=== PATIENT | male | born 1950 | race American Indian/Alaskan Native ===

== ENCOUNTER 2016-11-18 20:58 | Inpatient (IN) | payer MEDICARE ==
[2016-11-18] MEDS ORDERED: TYLENOL ONE (22:27)
[2016-11-18] MEDS ORDERED: TYLENOL PO ONE (22:28)
[2016-11-19] MEDS ORDERED: NACL 0.9% 1000 ML 1,000 ML ONE (00:46)
[2016-11-19] MEDS ORDERED: XOPENEX IH ONE (00:50)
[2016-11-19] MEDS ORDERED: ATROVENT IH ONE (00:50)
[2016-11-19] MEDS ORDERED: MAGNESIUM SULFATE 2GM/50ML 50 ML IV ONE (00:51)
--- NOTE | 2016-11-19 00:57 | Emergency Department Report ---
HPI - General Chief Complaint: Dyspnea/Respdistress Time Seen by Provider: 11/19/16 00:43 - HPI HPI: Room 24 The patient is a 66-year-old male presenting with a chief complaint of shortness of breath. 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 The patient does admit to alcohol but acknowledges it has been nonproductive. Patient denies chest pain. Patient denies any other symptoms outside of shortness of breath Location: Lungs Duration: 4 days Quality: Shortness of breath Severity: Moderate Modifying factors: Unknown Context: [see above] Mode of transportation: [not driving] ED Past Medical Hx - Past Medical History Previous Medical History?: Yes Hx Hypertension: Yes Hx CVA: Yes Hx Diabetes: Yes Hx Asthma: Yes Hx COPD: Yes - Surgical History Past Surgical History?: Yes Additional Surgical History: Gtube - Family History Family history: no significant - Social History Smoking Status: Unknown if ever smoked Substance Use Type: Non Opiate Pain, Prescribed - Medications Home Medications: Home Medications Medication Instructions Recorded Confirmed Last Taken Type Aspirin [Aspirin BABY CHEW TAB] 81 mg PO QDAY 02/05/15 11/18/16 11/18/16 History Clonidine HCl [Catapres] 0.3 mg PO Q8H 02/05/15 11/18/16 11/18/16 History Clopidogrel Bisulfate [Plavix] 75 mg PO DAILY 02/05/15 11/18/16 11/18/16 History Diltiazem [Cardizem] 60 mg PO DAILY 02/05/15 11/18/16 11/18/16 History Famotidine [Pepcid] 20 mg PO QHS 02/05/15 11/18/16 11/18/16 History Insulin Glargine [Lantus VIAL] 25 unit SUB-Q QHS 02/05/15 11/18/16 11/18/16 History LORazepam [Ativan] 2 mg PO Q6H PRN 02/05/15 11/18/16 11/18/16 History Metoprolol [Lopressor TAB] 50 mg PO BID 02/05/15 11/18/16 11/18/16 History Simvastatin [Zocor TAB] 20 mg PO QHS 02/05/15 11/18/16 11/18/16 History metFORMIN [Glucophage] 500 mg PO BID 02/05/15 11/18/16 11/18/16 History Levofloxacin [Levaquin] 500 mg PO QDAY #7 tablet 02/13/15 11/18/16 11/18/16 Rx ED Review of Systems ROS: Stated complaint: DIFFICULTY IN BREATHING Other details as noted in HPI Comment: All other systems reviewed and negative Constitutional: fever Eyes: denies: eye pain, eye discharge, vision change ENT: denies: ear pain, throat pain Respiratory: cough, shortness of breath Cardiovascular: denies: chest pain Endocrine: no symptoms reported Gastrointestinal: denies: abdominal pain, nausea, diarrhea Genitourinary: denies: urgency, dysuria Musculoskeletal: denies: back pain, joint swelling, arthralgia Skin: denies: rash, lesions Neurological: denies: headache, weakness, paresthesias Psychiatric: denies: anxiety, depression Hematological/Lymphatic: denies: easy bleeding, easy bruising Physical Exam - Physical Exam Vital Signs: Vital Signs 11/18/16 11/18/16 11/18/16 21:09 21:16 21:24 Temperature 100.1 F H Pulse Rate 144 H 144 H 144 H Respiratory 31 H 24 24 Rate Blood Pressure 136/73 Blood Pressure 136/73 [Left] O2 Sat by Pulse 99 99 99 Oximetry 11/18/16 11/18/16 11/18/16 22:00 22:26 23:00 Temperature 102.9 F H Pulse Rate 143 H 143 H 130 H Respiratory 28 H 22 29 H Rate Blood Pressure 134/40 137/67 Blood Pressure 127/77 [Left] O2 Sat by Pulse 98 99 99 Oximetry Physical Exam: GENERAL: The patient is well-developed well-nourished male lying on stretcher appearing diaphoretic. [] HEENT: Normocephalic. Atraumatic. Extraocular motions are intact. Patient has moist mucous membranes. NECK: Supple. Midline CHEST/LUNGS: Faint wheezing. Slightly increased work of breathing HEART/CARDIOVASCULAR: Regular. There is tachycardia. There is no gallop rub or murmur. ABDOMEN: Abdomen is soft, nontender. Patient has normal bowel sounds. There is no abdominal distention. SKIN: There is no rash. There is no edema. There is diaphoresis. NEURO: The patient is awake and alert. The patient is cooperative. Right hemiparesis from previous CVA. MUSCULOSKELETAL: There is no evidence of acute injury. ED Course Vital Signs 11/18/16 11/18/16 11/18/16 21:09 21:16 21:24 Temperature 100.1 F H Pulse Rate 144 H 144 H 144 H Respiratory 31 H 24 24 Rate Blood Pressure 136/73 Blood Pressure 136/73 [Left] O2 Sat by Pulse 99 99 99 Oximetry 11/18/16 11/18/16 11/18/16 22:00 22:26 23:00 Temperature 102.9 F H Pulse Rate 143 H 143 H 130 H Respiratory 28 H 22 29 H Rate Blood Pressure 134/40 137/67 Blood Pressure 127/77 [Left] O2 Sat by Pulse 98 99 99 Oximetry ED Medical Decision Making - Lab Data Result diagrams: 11/19/16 01:42 11/19/16 01:42 Laboratory Tests 11/19/16 11/19/16 11/19/16 01:42 01:42 01:42 WBC 15.4 H RBC 5.56 H Hgb 7.1 L Hct 26.0 L MCV 50 L MCH 13 L MCHC 26 L RDW 23.0 H Plt Count 374 Lymph % (Auto) Mixing Operator [place] % (Auto) Mixing Operator Eos % (Auto) Mixing Operator Baso % (Auto) Mixing Operator Lymph # Mixing Operator [place] # Mixing Operator Eos # Mixing Operator Baso # Mixing Operator Seg Neutrophils % Mixing Operator Seg Neutrophils # Mixing Operator PT 14.7 INR 1.16 H APTT 31.5 Sodium 142 Potassium 4.2 Chloride 102.6 Carbon Dioxide 20 L Anion Gap 24 BUN 11 Creatinine 0.5 L Estimated GFR > 60 BUN/Creatinine Ratio 22.00 Glucose 174 H Calcium 8.7 Total Creatine Kinase 286 H CK-MB (CK-2) 3.0 CK-MB (CK-2) Rel Index 1.0 Troponin T 0.041 H NT-Pro-B Natriuret Pep 3981 H - EKG Data -: EKG Interpreted by Me EKG shows normal: sinus rhythm Rate: tachycardia (129 bpm) - EKG Data When compared to previous EKG there are: changes noted Interpretation: nonspecific ST-T wave christ (diffuse ST depression) - Radiology Data Radiology results: image reviewed (chest x-ray) interpreted by me: Chest [id number] right lower lobe atelectasis. No definite focal infiltrates seen. No pneumothorax - Differential Diagnosis pneumonia, COPD exacerbation Critical care attestation.: If time is entered above; I have spent that time in minutes in the direct care of this critically ill patient, excluding procedure time. ED Disposition Clinical Impression: Shortness of breath, COPD exacerbation, Pulmonary infection Disposition: OP ADMITTED IP TO THIS HOSP Is pt being admited?: Yes Does the pt Need Aspirin: Yes Condition: Serious Instructions: Chronic Obstructive Pulmonary Disease (ED) Time of Disposition: 02:52 (hospitalist paged)
[2016-11-19] MEDS ORDERED: NACL 0.9% 1000 ML 1,000 ML IV ONE (01:04)
[2016-11-19 02:14] LABS: INR 1.16 (0.87-1.13)
[2016-11-19 02:15] LABS: Partial Thromboplastin Time 31.5 Sec. (24.2-36.6)
[2016-11-19 02:17] LABS: Blood Urea Nitrogen 11 mg/dL (9-20); Calcium 8.7 mg/dL (8.4-10.2); Carbon Dioxide 20 mmol/L (22-30); Chloride 102.6 mmol/L (98-107); Creatine Kinase 286 units/L (55-170); Glucose 174 mg/dL (75-100); Potassium 4.2 mmol/L (3.6-5.0); Sodium 142 mmol/L (137-145)
[2016-11-19 02:21] LABS: Anion Gap 24 mmol/L
[2016-11-19] MEDS ORDERED: ASPIRIN PO ONE (02:31)
[2016-11-19 02:38] LABS: Platelet Count 374 K/mm3 (140-440); Red Blood Count 5.56 M/mm3 (3.65-5.03); White Blood Count 15.4 K/mm3 (4.5-11.0)
[2016-11-19 02:40] LABS: Hemoglobin 7.1 gm/dl (11.8-15.2)
[2016-11-19 02:42] LABS: Mean Corpuscular HGB Conc 26 % (32-34); Mean Corpuscular Hemoglobin 13 pg (28-32); Mean Corpuscular Volume 50 fl (84-94)
[2016-11-19] MEDS ORDERED: ZOSYN/NS 4.5GM/100ML 100 ML IV ONE (02:48)
[2016-11-19 03:00] LABS: Cholesterol 136 mg/dL (50-199); HDL Cholesterol 44 mg/dL (40-59); LDL Cholesterol,Direct 78 mg/dL (50-130); Triglycerides 73 mg/dL (2-149)
[2016-11-19] MEDS ORDERED: APRESOLINE IV PRN (05:06)
[2016-11-19] MEDS ORDERED: MORPHINE IV ONE (05:06)
--- NOTE | 2016-11-19 05:50 | History and Physical Report ---
History of Present Illness Date of examination: 11/19/16 Date of admission: 11/19/16 05:03 History of present illness: 66-year-old man with a history of hypertension, COPD, CVA with right hemiparesis , aphasia was brought to the emergency room by his son with complaints of shortness of breath and fever. Patient stated he has a nonproductive cough. Review of system is very difficult to obtain due to aphasia PAST SURGICAL HISTORY: PEG placement SOCIAL HISTORY: Lives with family, no tobacco, alcohol, drugs FAMILY HISTORY: Hypertension Medications and Allergies Allergies Allergy/AdvReac Type Severity Reaction Status Date / Time No Known Allergies Allergy Unverified 02/05/15 13:35 Home Medications Medication Instructions Recorded Confirmed Last Taken Type Aspirin [Aspirin BABY CHEW TAB] 81 mg PO QDAY 02/05/15 11/18/16 11/18/16 History Clonidine HCl [Catapres] 0.3 mg PO Q8H 02/05/15 11/18/16 11/18/16 History Clopidogrel Bisulfate [Plavix] 75 mg PO DAILY 02/05/15 11/18/16 11/18/16 History Diltiazem [Cardizem] 60 mg PO DAILY 02/05/15 11/18/16 11/18/16 History Famotidine [Pepcid] 20 mg PO QHS 02/05/15 11/18/16 11/18/16 History Insulin Glargine [Lantus VIAL] 25 unit SUB-Q QHS 02/05/15 11/18/16 11/18/16 History LORazepam [Ativan] 2 mg PO Q6H PRN 02/05/15 11/18/16 11/18/16 History Metoprolol [Lopressor TAB] 50 mg PO BID 02/05/15 11/18/16 11/18/16 History Simvastatin [Zocor TAB] 20 mg PO QHS 02/05/15 11/18/16 11/18/16 History metFORMIN [Glucophage] 500 mg PO BID 02/05/15 11/18/16 11/18/16 History Levofloxacin [Levaquin] 500 mg PO QDAY #7 tablet 02/13/15 11/18/16 11/18/16 Rx Active Meds: Active Medications Hydralazine HCl (Apresoline) 5 mg IV Q6H PRN PRN Reason: Hypertension Ipratropium [place] (Atrovent) 0.5 mg IH Q4HRT WILMA Exam - Physical Exam Narrative exam: Gen. appearance: Patient lying in bed, no apparent distress HEENT: Normocephalic, atraumatic, pupils equally round and reactive to light, extraocular movement intact, and no sclericterus,. No JVD or thyromegaly or nodule,neck supple, no carotid bruit ,mucous membranes moist, no exudate or erythema Heart: S1, S2, regular rate and rhythm Lungs: Wheezing bilaterally, breathing comfortable Abdomen: Positive bowel sounds, nontender, nondistended, no organomegaly Extremity: No edema, cyanosis, clubbing Skin: No rash, nodules, warm, dry Neuro: Oriented 3, cranial nerves II-12 intact, speech is fluent, motor and sensory intact - Constitutional Vitals: Temp Pulse Resp BP Pulse Ox 97.6 F 124 H 24 164/110 100 11/19/16 02:16 11/19/16 04:00 11/19/16 05:38 11/19/16 04:00 11/19/16 04:00 Results - Labs CBC & Chem 7: 11/19/16 01:42 11/19/16 01:42 - Imaging and Cardiology EKG: image reviewed (st, 110, read by me) Chest x-ray: image reviewed (nad, read by me) Assessment and Plan COPD with acute bronchitis Anemia Hypertension controlled Hyperlipidemia History of CVA with right hemiparesis Admits medicine Start high-dose IV steroids, nebulizer treatments, IV antibiotics. Check iron, ferritin, TIBC, FOBT, transfuse 2 units of blood, check cardiac enzymes Premedicate with Benadryl and Tylenol prior to transfusion Start IV hydralazine as needed for blood pressure control, first dose now Obtain cultures, continue Procrit outpatient medications, start DVT prophylaxis with SCDs
[2016-11-19] MEDS ORDERED: NACL 0.9% 500 ML 500 ML IV ONE (06:00)
[2016-11-19] MEDS ORDERED: BENADRYL IV ONE (06:04)
[2016-11-19 06:09] LABS: Anisocytosis 2+; Basophils % (Manual) 0 % (0.0-1.8); Blastocytes % (Manual) 0 %; Eosinophils % (Manual) 0 % (0.0-4.3); Hypochromasia 3+
[2016-11-19 06:10] LABS: Diff Status Complete; Elliptocytes Rare; Microcytosis 3+; Polychromasia 1+
[2016-11-19] MEDS ORDERED: MILK OF MAGNESIA PO PRN (07:46)
[2016-11-19] MEDS ORDERED: DULCOLAX PR PRN (07:46)
[2016-11-19] MEDS ORDERED: PERCOCET 5/325 PO PRN (07:46)
[2016-11-19] MEDS ORDERED: ZOFRAN IV PRN (07:46)
[2016-11-19] MEDS ORDERED: TYLENOL PO PRN (08:00)
[2016-11-19] MEDS ORDERED: PROVENTIL IH PRN (08:02)
[2016-11-19 08:23] LABS: Creatine Kinase 312 units/L (55-170); Iron 15 ug/dL (49-181); Total Iron Binding Capacity 440 mcg/dL (250-450)
--- NOTE | 2016-11-19 09:20 | XRay Report ---
Portable chest: Is a slightly coarse bronchovascular pattern throughout both lungs with no infiltrate or nodule. No vascular congestion considering supine positioning. The heart is probably normal also for positioning. The apices are slightly obscured by the patient's drooping chin. Impression: Chronic appearing interstitial changes. No acute findings suspected on this limited exam.
[2016-11-19] MEDS: ATROVENT IH SCH ×2 (09:32→15:13)
[2016-11-19] MEDS: DUONEB 0.5 MG-3 MG/3 ML SOLN IH SCH ×3 (09:32→19:30)
--- NOTE | 2016-11-19 10:09 | Admit Criteria Form ---
Admission Criteria Documentation: COPD Clinical Indications for Admission to Inpatient Care (Place 'X' for any and all applicable criteria): Admission is indicated for ANY ONE of the following (1)(2)(3): [ ]I. Acute exacerbation by high-risk comorbidity (e.g., pneumonia, dysrhythmia, heart failure, pleural effusion, pneumothorax) or severe underlying COPD (e.g., steroid dependent) [X ]II. Inpatient admission required rather than observation care (see Chronic Obstructive Pulmonary Disease: Observation Care) because of ANY ONE of the following: [X ]a) New or pre-existing signs or symptoms of COPD (eg, dyspnea or Tachypnea at rest or with minimal activity) that persist despite outpatient and observation care treatment [ ]b) New-onset hypoxemia (room air SaO2 less than 90%, PO2 less than 60 mm Hg (8.0 kPa)) that persists despite outpatient and observation care treatment [ ]c) Worsening of pre-existing hypoxemia (eg, new or increased requirement for supplemental oxygen to maintain oxygenation at baseline level) that persists despite outpatient and observation care treatment, with oxygen treatment needs performable only in acute inpatient setting [ ]d) Hypercarbia (PCO2 greater than 40 mm Hg (5.3 kPa))-induced respiratory acidosis (pH less than 7.35) that persists despite outpatient and observation care treatment [ ]e) Supplemental oxygen or respiratory treatments for over 24 hours that are performable only in acute inpatient setting [ ]f) Chest tube placement with active evacuation (e.g., suction, drainage) (5) [ ]g) Other condition, treatment or monitoring requiring inpatient admission [ ]III. Planned invasive surgical or diagnostic procedures requiring acute- care hospitalization [ ]IV. Acute respiratory failure (e.g., uncompensated hypercarbia, severe hypoxemia) [ ]V. Severe comorbid condition (e.g., severe steroid myopathy, acute vertebral fracture) that has acutely worsened pulmonary function [ ]. Confusion state, lethargy, obtundation, stupor or coma Extended stay beyond goal length of stay may be needed for (31)(32): [ ]a ) Respiratory Failure. [ ]b) Severe or persisting hypoxemia or hypercarbia [ ]c) Severe or persistent dyspnea [ ]d) Comorbidities (e.g. chronic heart failure, atrial fibrillation with rapid response, pneumonia) [ ]e) Malnutrition The original [facility] content created by [employer] has been revised. The portions of the content which have been revised are identified through the use of italic text or in bold, and [facility] has neither reviewed nor approved the modified material. All other unmodified content is copyright [facility]. Please see references footnoted in the original [facility] edition 2016 Admission Criteria Met: Yes
[2016-11-19] MEDS: ROCEPHIN/NS 1 GM/50 ML 50 ML IV SCH (12:53)
[2016-11-19] MEDS ORDERED: LOPRESSOR PO ONE (16:35)
--- NOTE | 2016-11-19 16:41 | Event Note ---
Date: 11/19/16 Patient admitted this morning with acute exacerbation of COPD acute bronchitis and fever Medical records reviewed, continue current management
[2016-11-19] MEDS ORDERED: NON-FORMULARY (Clonidine Hcl [Catapres] 0.3 MG) PO SCH (16:45)
[2016-11-19] MEDS ORDERED: CATAPRES ONE ×2 (16:54)
[2016-11-19] MEDS: CATAPRES PO SCH ×2 (17:21→23:52)
[2016-11-19 21:19] LABS: Creatine Kinase MB 4.2 ng/mL (0.0-4.0)
[2016-11-19 21:21] LABS: Creatine Kinase 355 units/L (55-170)
[2016-11-19] MEDS: ZOCOR PO SCH (23:53)
[2016-11-19] MEDS: GLUCOPHAGE PO SCH (23:53)
[2016-11-19] MEDS: LOPRESSOR PO SCH (23:54)
[2016-11-20] MEDS: DUONEB 0.5 MG-3 MG/3 ML SOLN IH SCH ×4 (02:05→19:37)
[2016-11-20 06:42] LABS: Mean Corpuscular HGB Conc 29 % (32-34); Platelet Count 266 K/mm3 (140-440); Red Blood Count 5.34 M/mm3 (3.65-5.03); White Blood Count 6.3 K/mm3 (4.5-11.0)
[2016-11-20 06:51] LABS: Hematocrit 29.8 % (35.5-45.6); Hemoglobin 8.8 gm/dl (11.8-15.2); Mean Corpuscular Hemoglobin 16 pg (28-32); Mean Corpuscular Volume 56 fl (84-94); Red Cell Distribution Width 37.1 % (13.2-15.2)
[2016-11-20 06:59] LABS: Anion Gap 18 mmol/L; Blood Urea Nitrogen 14 mg/dL (9-20); Calcium 8.5 mg/dL (8.4-10.2); Carbon Dioxide 22 mmol/L (22-30); Chloride 109.4 mmol/L (98-107); Glucose 303 mg/dL (75-100); Magnesium 2.2 mg/dL (1.7-2.3); Phosphorous 2.2 mg/dL (2.5-4.5); Sodium 145 mmol/L (137-145)
[2016-11-20 08:01] LABS: Basophils % (Manual) 0 % (0.0-1.8); Blastocytes % (Manual) 0 %; Eosinophils % (Manual) 0 % (0.0-4.3)
[2016-11-20 08:02] LABS: Anisocytosis 2+; Diff Status Complete; Hypochromasia 2+; Large Platelets Few; Microcytosis 2+; Ovalocytes Few; Polychromasia 2+; Schistocytes Rare; Target Cells Few
[2016-11-20] MEDS ORDERED: KPHOS 30 MMOL in NACL 0.9% 500 ML 500 ML IV ONE (08:14)
[2016-11-20] MEDS: CATAPRES PO SCH ×3 (08:26→22:10)
[2016-11-20] MEDS: GLUCOPHAGE PO SCH ×2 (09:51→22:06)
[2016-11-20] MEDS: PLAVIX PO SCH (10:12)
[2016-11-20] MEDS: CARDIZEM PO SCH (10:12)
[2016-11-20] MEDS: BABY ASPIRIN PO SCH (10:12)
[2016-11-20] MEDS: LOPRESSOR PO SCH ×2 (10:13→22:11)
[2016-11-20] MEDS: ROCEPHIN/NS 1 GM/50 ML 50 ML IV SCH (10:13)
--- NOTE | 2016-11-20 10:30 | Progress Note ---
Assessment and Plan Assessment and plan: --Acute exacerbation of COPD with acute bronchitis Oxygen titrated to O2 sats more than 90%, nebulizers, empiric antibiotics IV steroids --Anemia closely monitor H&H and transfuse as needed --Hypertension well-controlled, continue current antihypertensives and when necessary medications --Hyperlipidemia stable on lipid-lowering medications --Type 2 diabetes mellitus uncontrolled Accu-Chek sliding scale coverage and ADA diet oral hypoglycemics, add low-dose 7030 twice a day --History of CVA with right hemiparesis continue current management Physical therapy occupational therapy --DVT prophylaxis with Lovenox Closely monitor the patient and adjust the management as needed Plan of care discussed with the patient and the nurse History Interval history: Patient seen and evaluated medical records reviewed No new events reported by the nursing staff Denies any nausea vomiting or abdominal pain Alert awake oriented 3 not in acute distress Hospitalist Physical - Constitutional Vitals: Temp Pulse Resp BP Pulse Ox 98.6 F 92 H 18 137/82 100 11/20/16 08:30 11/20/16 10:13 11/20/16 08:30 11/20/16 10:13 11/20/16 08:30 General appearance: Present: no acute distress, well-nourished, other ( chronically ill looking) - EENT Eyes: Present: PERRL, EOM intact - Neck Neck: Present: supple, normal ROM - Respiratory Respiratory effort: normal Respiratory: bilateral: diminished, negative: rales, rhonchi, wheezing - Cardiovascular Rhythm: regular Heart Sounds: Present: S1 & S2 - Extremities Extremities: no ischemia, pulses intact, pulses symmetrical Peripheral Pulses: within normal limits - Abdominal General gastrointestinal: soft, non-tender, non-distended, normal bowel sounds - Integumentary Integumentary: Present: clear, warm - Psychiatric Psychiatric: appropriate mood/affect, cooperative - Neurologic Neurologic: CNII-XII intact, moves all extremities Results - Labs CBC & Chem 7: 11/20/16 06:18 11/20/16 06:18 Labs: Laboratory Last Values WBC 6.3 K/mm3 (4.5-11.0) 11/20/16 06:18 RBC 5.34 M/mm3 (3.65-5.03) H 11/20/16 06:18 Hgb 8.8 gm/dl (11.8-15.2) L 11/20/16 06:18 Hct 29.8 % (35.5-45.6) L 11/20/16 06:18 MCV 56 fl (84-94) L D 11/20/16 06:18 MCH 16 pg (28-32) L 11/20/16 06:18 MCHC 29 % (32-34) L 11/20/16 06:18 RDW 37.1 % (13.2-15.2) H 11/20/16 06:18 Plt Count 266 K/mm3 (140-440) 11/20/16 06:18 Lymph % (Auto) It Security Project Manager 11/19/16 01:42 [place] % (Auto) It Security Project Manager 11/19/16 01:42 Eos % (Auto) It Security Project Manager 11/19/16 01:42 Baso % (Auto) It Security Project Manager 11/19/16 01:42 Lymph # It Security Project Manager 11/19/16 01:42 [place] # It Security Project Manager 11/19/16 01:42 Eos # It Security Project Manager 11/19/16 01:42 Baso # It Security Project Manager 11/19/16 01:42 Add Manual Diff Complete 11/20/16 06:18 Total Counted 100 11/20/16 06:18 Seg Neutrophils % It Security Project Manager 11/20/16 06:18 Seg Neuts % (Manual) 90.0 % (40.0-70.0) H 11/20/16 06:18 Band Neutrophils % 5.0 % 11/20/16 06:18 Lymphocytes % (Manual) 4.0 % (13.4-35.0) L 11/20/16 06:18 Reactive Lymphs % (Man) 0 % 11/20/16 06:18 Monocytes % (Manual) 1.0 % (0.0-7.3) 11/20/16 06:18 Eosinophils % (Manual) 0 % (0.0-4.3) 11/20/16 06:18 Basophils % (Manual) 0 % (0.0-1.8) 11/20/16 06:18 Metamyelocytes % 0 % 11/20/16 06:18 Myelocytes % 0 % 11/20/16 06:18 Promyelocytes % 0 % 11/20/16 06:18 Blast Cells % 0 % 11/20/16 06:18 Nucleated RBC % Not Reportable 11/20/16 06:18 Seg Neutrophils # It Security Project Manager 11/19/16 01:42 Seg Neutrophils # Man 5.7 K/mm3 (1.8-7.7) 11/20/16 06:18 Band Neutrophils # 0.3 K/mm3 11/20/16 06:18 Lymphocytes # (Manual) 0.3 K/mm3 (1.2-5.4) L 11/20/16 06:18 Abs React Lymphs (Man) 0.0 K/mm3 11/20/16 06:18 Monocytes # (Manual) 0.1 K/mm3 (0.0-0.8) 11/20/16 06:18 Eosinophils # (Manual) 0.0 K/mm3 (0.0-0.4) 11/20/16 06:18 Basophils # (Manual) 0.0 K/mm3 (0.0-0.1) 11/20/16 06:18 Metamyelocytes # 0.0 K/mm3 11/20/16 06:18 Myelocytes # 0.0 K/mm3 11/20/16 06:18 Promyelocytes # 0.0 K/mm3 11/20/16 06:18 Blast Cells # 0.0 K/mm3 11/20/16 06:18 WBC Morphology Not Reportable 11/20/16 06:18 Hypersegmented Neuts Not Reportable 11/20/16 06:18 Hyposegmented Neuts Not Reportable 11/20/16 06:18 Hypogranular Neuts Not Reportable 11/20/16 06:18 Smudge Cells Not Reportable 11/20/16 06:18 Toxic Granulation Not Reportable 11/20/16 06:18 Toxic Vacuolation Not Reportable 11/20/16 06:18 Dohle Bodies Not Reportable 11/20/16 06:18 Pelger-Huet Anomaly Not Reportable 11/20/16 06:18 Asiya Rods Not Reportable 11/20/16 06:18 Platelet Estimate Appears normal 11/20/16 06:18 Clumped Platelets Not Reportable 11/20/16 06:18 Plt Clumps, EDTA Not Reportable 11/20/16 06:18 Large Platelets Few 11/20/16 06:18 Giant Platelets Not Reportable 11/20/16 06:18 Platelet Satelliting Not Reportable 11/20/16 06:18 Plt Morphology Comment Not Reportable 11/20/16 06:18 RBC Morphology Not Reportable 11/20/16 06:18 Dimorphic RBCs Yes 11/20/16 06:18 Polychromasia 2+ 11/20/16 06:18 Hypochromasia 2+ 11/20/16 06:18 Poikilocytosis Not Reportable 11/20/16 06:18 Anisocytosis 2+ 11/20/16 06:18 Microcytosis 2+ 11/20/16 06:18 Macrocytosis Not Reportable 11/20/16 06:18 Spherocytes Not Reportable 11/20/16 06:18 Pappenheimer Bodies Not Reportable 11/20/16 06:18 Sickle Cells Not Reportable 11/20/16 06:18 Target Cells Few 11/20/16 06:18 Tear Drop Cells Not Reportable 11/20/16 06:18 Ovalocytes Few 11/20/16 06:18 Helmet Cells Not Reportable 11/20/16 06:18 [place] Bodies Not Reportable 11/20/16 06:18 [place] Rings Not Reportable 11/20/16 06:18 [place] Cells Not Reportable 11/20/16 06:18 Bite Cells Not Reportable 11/20/16 06:18 Crenated Cell Not Reportable 11/20/16 06:18 Elliptocytes Not Reportable 11/20/16 06:18 Acanthocytes (Spur) Not Reportable 11/20/16 06:18 Rouleaux Not Reportable 11/20/16 06:18 Hemoglobin C Crystals Not Reportable 11/20/16 06:18 Schistocytes Rare 11/20/16 06:18 Malaria parasites Not Reportable 11/20/16 06:18 [place] Bodies Not Reportable 11/20/16 06:18 Hem Pathologist Commnt No 11/20/16 06:18 PT 14.7 Sec. (12.2-14.9) 11/19/16 01:42 INR 1.16 (0.87-1.13) H 11/19/16 01:42 APTT 31.5 Sec. (24.2-36.6) 11/19/16 01:42 Sodium 145 mmol/L (137-145) 11/20/16 06:18 Potassium 4.0 mmol/L (3.6-5.0) 11/20/16 06:18 Chloride 109.4 mmol/L (98-107) H 11/20/16 06:18 Carbon Dioxide 22 mmol/L (22-30) 11/20/16 06:18 Anion Gap 18 mmol/L 11/20/16 06:18 BUN 14 mg/dL (9-20) 11/20/16 06:18 Creatinine 0.5 mg/dL (0.8-1.5) L 11/20/16 06:18 Estimated GFR > 60 ml/min 11/20/16 06:18 BUN/Creatinine Ratio 28.00 % 11/20/16 06:18 Glucose 303 mg/dL (75-100) H 11/20/16 06:18 POC Glucose 350 (70-105) H 11/20/16 06:48 Calcium 8.5 mg/dL (8.4-10.2) 11/20/16 06:18 Phosphorus 2.2 mg/dL (2.5-4.5) L 11/20/16 06:18 Magnesium 2.2 mg/dL (1.7-2.3) 11/20/16 06:18 Iron 15 ug/dL (49-181) L 11/19/16 07:59 TIBC 440 mcg/dL (250-450) 11/19/16 07:59 Ferritin 12.2 ng/mL (13.0-400.0) L 11/19/16 07:59 Total Creatine Kinase 355 units/L (55-170) H 11/19/16 20:15 CK-MB (CK-2) 4.2 ng/mL (0.0-4.0) H 11/19/16 20:15 CK-MB (CK-2) Rel Index 1.1 (0-4) 11/19/16 20:15 Troponin T < 0.010 ng/mL (0.00-0.029) 11/19/16 20:15 NT-Pro-B Natriuret Pep 3981 pg/mL (0-900) H 11/19/16 01:42 Triglycerides 73 mg/dL (2-149) 11/19/16 01:42 Cholesterol 136 mg/dL (50-199) 11/19/16 01:42 LDL Cholesterol Direct 78 mg/dL (50-130) 11/19/16 01:42 HDL Cholesterol 44 mg/dL (40-59) 11/19/16 01:42 Cholesterol/HDL Ratio 3.09 % 11/19/16 01:42 Blood Type B POSITIVE 11/19/16 07:33 Antibody Screen Negative 11/19/16 07:33 Crossmatch See Detail 11/19/16 07:33
[2016-11-20] MEDS: LOVENOX SUB-Q SCH (22:06)
[2016-11-20] MEDS: ZOCOR PO SCH (22:07)
[2016-11-21] MEDS: DUONEB 0.5 MG-3 MG/3 ML SOLN IH SCH ×4 (01:35→20:00)
[2016-11-21] MEDS: CATAPRES PO SCH ×3 (05:37→21:41)
[2016-11-21] MEDS: PLAVIX PO SCH (12:06)
[2016-11-21] MEDS: BABY ASPIRIN PO SCH (12:06)
[2016-11-21] MEDS: GLUCOPHAGE PO SCH ×2 (12:06→21:31)
[2016-11-21] MEDS: LOPRESSOR PO SCH ×2 (12:06→21:40)
[2016-11-21] MEDS: CARDIZEM PO SCH (12:07)
[2016-11-21] MEDS: ROCEPHIN/NS 1 GM/50 ML 50 ML IV SCH (12:07)
--- NOTE | 2016-11-21 18:00 | Progress Note ---
Assessment and Plan Assessment and plan: --Acute bronchitis and Acute exacerbation of COPD In terms slightly improved, oxygen nebulizers antibiotics pending dose of steroids --History of chronic anemia, received 2 units PRBC with significant improvement of H&H, closely monitor --Hypertension well-controlled, continue current antihypertensives and when necessary medications --Hyperlipidemia stable on lipid-lowering medications --Type 2 diabetes mellitus uncontrolled Accu-Chek sliding scale coverage and ADA diet oral hypoglycemics, add low-dose 7030 twice a day --History of CVA with right hemiparesis continue current management Physical therapy occupational therapy --DVT prophylaxis with Lovenox Closely monitor the patient and adjust the management as needed Plan of care discussed with the patient and the nurse Possible discharge home tomorrow if stable on oral antibiotics and tapering dose of steroids History Interval history: Patient seen and evaluated in his room this morning medical records reviewed Patient feels slightly better still complains of mild shortness of breath and cough Denies any chest pain or palpitations Alert awake oriented 3 not in acute distress Vital signs reviewed Hospitalist Physical - Constitutional Vitals: Temp Pulse Resp BP Pulse Ox 98.6 F 65 18 142/74 100 11/21/16 16:30 11/21/16 16:30 11/21/16 16:30 11/21/16 16:30 11/21/16 16:30 General appearance: Present: no acute distress, well-nourished, other ( chronically ill looking) - EENT Eyes: Present: PERRL, EOM intact - Neck Neck: Present: supple, normal ROM - Respiratory Respiratory effort: normal Respiratory: bilateral: diminished, negative: rales, rhonchi, wheezing - Cardiovascular Rhythm: regular Heart Sounds: Present: S1 & S2 - Extremities Extremities: no ischemia, pulses intact, pulses symmetrical Peripheral Pulses: within normal limits - Abdominal General gastrointestinal: soft, non-tender, non-distended, normal bowel sounds - Integumentary Integumentary: Present: clear, warm - Psychiatric Psychiatric: appropriate mood/affect, cooperative - Neurologic Neurologic: CNII-XII intact, moves all extremities Results - Labs CBC & Chem 7: 11/20/16 06:18 11/20/16 06:18 Labs: Laboratory Last Values WBC 6.3 K/mm3 (4.5-11.0) 11/20/16 06:18 RBC 5.34 M/mm3 (3.65-5.03) H 11/20/16 06:18 Hgb 8.8 gm/dl (11.8-15.2) L 11/20/16 06:18 Hct 29.8 % (35.5-45.6) L 11/20/16 06:18 MCV 56 fl (84-94) L D 11/20/16 06:18 MCH 16 pg (28-32) L 11/20/16 06:18 MCHC 29 % (32-34) L 11/20/16 06:18 RDW 37.1 % (13.2-15.2) H 11/20/16 06:18 Plt Count 266 K/mm3 (140-440) 11/20/16 06:18 Lymph % (Auto) Surgical Garment Fitter 11/19/16 01:42 Ralls % (Auto) Surgical Garment Fitter 11/19/16 01:42 Eos % (Auto) Surgical Garment Fitter 11/19/16 01:42 Baso % (Auto) Surgical Garment Fitter 11/19/16 01:42 Lymph # Surgical Garment Fitter 11/19/16 01:42 Ralls # Surgical Garment Fitter 11/19/16 01:42 Eos # Surgical Garment Fitter 11/19/16 01:42 Baso # Surgical Garment Fitter 11/19/16 01:42 Add Manual Diff Complete 11/20/16 06:18 Total Counted 100 11/20/16 06:18 Seg Neutrophils % Surgical Garment Fitter 11/20/16 06:18 Seg Neuts % (Manual) 90.0 % (40.0-70.0) H 11/20/16 06:18 Band Neutrophils % 5.0 % 11/20/16 06:18 Lymphocytes % (Manual) 4.0 % (13.4-35.0) L 11/20/16 06:18 Reactive Lymphs % (Man) 0 % 11/20/16 06:18 Monocytes % (Manual) 1.0 % (0.0-7.3) 11/20/16 06:18 Eosinophils % (Manual) 0 % (0.0-4.3) 11/20/16 06:18 Basophils % (Manual) 0 % (0.0-1.8) 11/20/16 06:18 Metamyelocytes % 0 % 11/20/16 06:18 Myelocytes % 0 % 11/20/16 06:18 Promyelocytes % 0 % 11/20/16 06:18 Blast Cells % 0 % 11/20/16 06:18 Nucleated RBC % Not Reportable 11/20/16 06:18 Seg Neutrophils # Surgical Garment Fitter 11/19/16 01:42 Seg Neutrophils # Man 5.7 K/mm3 (1.8-7.7) 11/20/16 06:18 Band Neutrophils # 0.3 K/mm3 11/20/16 06:18 Lymphocytes # (Manual) 0.3 K/mm3 (1.2-5.4) L 11/20/16 06:18 Abs React Lymphs (Man) 0.0 K/mm3 11/20/16 06:18 Monocytes # (Manual) 0.1 K/mm3 (0.0-0.8) 11/20/16 06:18 Eosinophils # (Manual) 0.0 K/mm3 (0.0-0.4) 11/20/16 06:18 Basophils # (Manual) 0.0 K/mm3 (0.0-0.1) 11/20/16 06:18 Metamyelocytes # 0.0 K/mm3 11/20/16 06:18 Myelocytes # 0.0 K/mm3 11/20/16 06:18 Promyelocytes # 0.0 K/mm3 11/20/16 06:18 Blast Cells # 0.0 K/mm3 11/20/16 06:18 WBC Morphology Not Reportable 11/20/16 06:18 Hypersegmented Neuts Not Reportable 11/20/16 06:18 Hyposegmented Neuts Not Reportable 11/20/16 06:18 Hypogranular Neuts Not Reportable 11/20/16 06:18 Smudge Cells Not Reportable 11/20/16 06:18 Toxic Granulation Not Reportable 11/20/16 06:18 Toxic Vacuolation Not Reportable 11/20/16 06:18 Dohle Bodies Not Reportable 11/20/16 06:18 Pelger-Huet Anomaly Not Reportable 11/20/16 06:18 Asiya Rods Not Reportable 11/20/16 06:18 Platelet Estimate Appears normal 11/20/16 06:18 Clumped Platelets Not Reportable 11/20/16 06:18 Plt Clumps, EDTA Not Reportable 11/20/16 06:18 Large Platelets Few 11/20/16 06:18 Giant Platelets Not Reportable 11/20/16 06:18 Platelet Satelliting Not Reportable 11/20/16 06:18 Plt Morphology Comment Not Reportable 11/20/16 06:18 RBC Morphology Not Reportable 11/20/16 06:18 Dimorphic RBCs Yes 11/20/16 06:18 Polychromasia 2+ 11/20/16 06:18 Hypochromasia 2+ 11/20/16 06:18 Poikilocytosis Not Reportable 11/20/16 06:18 Anisocytosis 2+ 11/20/16 06:18 Microcytosis 2+ 11/20/16 06:18 Macrocytosis Not Reportable 11/20/16 06:18 Spherocytes Not Reportable 11/20/16 06:18 Pappenheimer Bodies Not Reportable 11/20/16 06:18 Sickle Cells Not Reportable 11/20/16 06:18 Target Cells Few 11/20/16 06:18 Tear Drop Cells Not Reportable 11/20/16 06:18 Ovalocytes Few 11/20/16 06:18 Helmet Cells Not Reportable 11/20/16 06:18 [place] Bodies Not Reportable 11/20/16 06:18 Rincon Rings Not Reportable 11/20/16 06:18 Orestes Cells Not Reportable 11/20/16 06:18 Bite Cells Not Reportable 11/20/16 06:18 Crenated Cell Not Reportable 11/20/16 06:18 Elliptocytes Not Reportable 11/20/16 06:18 Acanthocytes (Spur) Not Reportable 11/20/16 06:18 Rouleaux Not Reportable 11/20/16 06:18 Hemoglobin C Crystals Not Reportable 11/20/16 06:18 Schistocytes Rare 11/20/16 06:18 Malaria parasites Not Reportable 11/20/16 06:18 Montrell Bodies Not Reportable 11/20/16 06:18 Hem Pathologist Commnt No 11/20/16 06:18 PT 14.7 Sec. (12.2-14.9) 11/19/16 01:42 INR 1.16 (0.87-1.13) H 11/19/16 01:42 APTT 31.5 Sec. (24.2-36.6) 11/19/16 01:42 Sodium 145 mmol/L (137-145) 11/20/16 06:18 Potassium 4.0 mmol/L (3.6-5.0) 11/20/16 06:18 Chloride 109.4 mmol/L (98-107) H 11/20/16 06:18 Carbon Dioxide 22 mmol/L (22-30) 11/20/16 06:18 Anion Gap 18 mmol/L 11/20/16 06:18 BUN 14 mg/dL (9-20) 11/20/16 06:18 Creatinine 0.5 mg/dL (0.8-1.5) L 11/20/16 06:18 Estimated GFR > 60 ml/min 11/20/16 06:18 BUN/Creatinine Ratio 28.00 % 11/20/16 06:18 Glucose 303 mg/dL (75-100) H 11/20/16 06:18 POC Glucose 206 (70-105) H 11/21/16 16:59 Calcium 8.5 mg/dL (8.4-10.2) 11/20/16 06:18 Phosphorus 2.2 mg/dL (2.5-4.5) L 11/20/16 06:18 Magnesium 2.2 mg/dL (1.7-2.3) 11/20/16 06:18 Iron 15 ug/dL (49-181) L 11/19/16 07:59 TIBC 440 mcg/dL (250-450) 11/19/16 07:59 Ferritin 12.2 ng/mL (13.0-400.0) L 11/19/16 07:59 Total Creatine Kinase 355 units/L (55-170) H 11/19/16 20:15 CK-MB (CK-2) 4.2 ng/mL (0.0-4.0) H 11/19/16 20:15 CK-MB (CK-2) Rel Index 1.1 (0-4) 11/19/16 20:15 Troponin T < 0.010 ng/mL (0.00-0.029) 11/19/16 20:15 NT-Pro-B Natriuret Pep 3981 pg/mL (0-900) H 11/19/16 01:42 Triglycerides 73 mg/dL (2-149) 11/19/16 01:42 Cholesterol 136 mg/dL (50-199) 11/19/16 01:42 LDL Cholesterol Direct 78 mg/dL (50-130) 11/19/16 01:42 HDL Cholesterol 44 mg/dL (40-59) 11/19/16 01:42 Cholesterol/HDL Ratio 3.09 % 11/19/16 01:42 Blood Type B POSITIVE 11/19/16 07:33 Antibody Screen Negative 11/19/16 07:33 Crossmatch See Detail 11/19/16 07:33
[2016-11-21] MEDS: LOVENOX SUB-Q SCH (21:30)
[2016-11-21] MEDS: ZOCOR PO SCH (21:31)
[2016-11-21] MEDS: PHOS-NAK PO SCH (21:31)
[2016-11-22] MEDS: DUONEB 0.5 MG-3 MG/3 ML SOLN IH SCH ×3 (01:29→13:16)
[2016-11-22] MEDS: CATAPRES PO SCH ×2 (05:42→17:59)
--- NOTE | 2016-11-22 10:14 | Query-Infection ---
"Dealouise Canseco Date:_11/22/16 Door Worker/CDS:Eren Rodriguez Phone#:_[phone] Exercise your independent professional judgment when responding to query. Questions asked do not imply a particular answer is desired or expected. We greatly appreciate your clarification on this issue. Clinical Documentation States: 66 Y/O Male admitted on 11/19/16 with Hx. of HTN, COPD, CVA with Right hemiparesis and aphasia presents with shortness of breath and fever. Clinical findings show: (please check applicable parameters) Infection, known /suspected, with some of the following indicators; Specify the infection: Acute Bronchitis WBC: 15.4 Temp: 100.1 HR: 144 RR: 31 Chest X-Ray: Course bronchovascular pattern throughout both lungs. 3 General parameters [ ] Fever (core temp >38.30C or 100.40F) [ ] Hypothermia (core temp <36C) [ ] Heart rate >90 bpm [ ] Tachypnea: >20 bpm or pCO2 < 32 mmHg [ ] Altered mental status [ ] Significant edema / +ve fluid balance (>20 ml/kg 24 h) [ ] Hyperglycemia (Bl. glucose >110 mg/dl) w/o diabetes Inflammatory parameters [ ] Leukocytosis (white blood cell count >12,000/l) [ ] Leukopenia (white blood cell count <4,000/l) [ ] Bandemia (immature WBC > 10%) [ ] Leucocyte Left Shift [ ] Plasma procalcitonin>2 SD above the normal value Hemodynamic and tissue perfusion parameters [ ] Arterial hypotension(SBP <90 mmHg, MAP <70 mmHg,or a SBP drop >40 mmHg in adults) [ ] Hyperlactatemia (>3 mmol/l) [ ] Anion Gap (> 11mEG/l) [ ] Decreased capillary refill or mottling Organ dysfunction parameters [ ] Arterial hypoxemia (PaO2/FIO2 <300) [ ] Creatinine increase =0.5 mg/dl [ ] Acute oliguria (urine output <0.5 ml | kg |h or 45 mM/l for at least 2 hrs) [ ] Coagulation abnormalities (INR >1.5 or activated partial thromboplastin time >60 s) [ ] Ileus (absent asad wel sounds) [ ] Thrombocytopenia (platelet count <100,000/l) [ ] Hyperbilirubinemia (plasma total bilirubin >4 mg/dl) According to the clinical indications above, can Bacteremia be further specified? If so, please indicate below and in your Progress Notes and/ or Discharge Summary. Indicate if the condition was present on admission. PHYSICIAN RESPONSE: [ x] Sepsis [ ] Severe Sepsis [ ] Septic Shock [ ] Septicemia [ ] Sepsis now resolved [ ] SIRS due to non-infectious cause with organ dysfunction [ ] SIRS due to non-infectious cause without organ dysfunction [ ] Other: [ ] Comment/Explanation: Present on Admission: [x ] Yes (Y) [ ] Clinically undeterminable (W) [ ] No (N) [ ] Ruled Out Please also document response in your Progress Notes and/or Discharge Summary and indicate if the condition was present on admission Notes: SIRS/ SIRS WITH ORGAN DYSFUNCTION Systemic inflammatory response syndrome (SIRS) generally refers to the systemic response to trauma/linda or other insult such as Acute Myocardial Infarction, Acute Pancreatitis, and Major Surgery with symptoms including fever, tachycardia , tachypnea, and leukocytosis (1). BACTEREMIA Presence of viable bacteria in the circulating blood (2). This term is reserved for patients that do not manifest above SIRS response. SEPTICEMIA Generally refers to a systemic disease associated with the presence of pathological microorganisms or toxins in the blood, which can include bacteria, viruses, fungi or other organisms (1). SEPSIS Generally refers to SIRS due infection (1). SEVERE SEPSIS Generally refers to sepsis associated with acute organ dysfunction (1). SEPTIC SHOCK Generally refers to circulatory failure associated with severe sepsis (2), and defined as hypotension or hypoperfusion despite adequate fluid resuscitation (1 hour) (3). REFERENCES: 1. [place] [employer]/Society of Critical Care Medicine Consensus Conference. Definitions for sepsis and organ failure and guidelines for the use of innovative therapies in sepsis. Critical Care Med 1992;20:864 - 74. 2. Greg quiroz MM, Devin MP, Jesse SANTO, Alex E, Ervin D, Jonh D, Venkat J, Kathie SM , Cezar CAVANAUGH, Lexy G; International Sepsis Definitions Conference. 2001 SCCM/ESICM/ACCP/ATS/SIS International Sepsis Definitions Conference. Intensive Care Med. 2003 Apr;29(4):530-8. Epub 2002Feb 01. Review. PubMed PMID:[id number] 3. ICD-9-CM Official Guidelines for Coding and Reporting 4. Medscape Drugs, Diseases and Procedures references 5. Stephen Textbook of Internal Medicine. 18th Edition MTDD"
[2016-11-22] MEDS: GLUCOPHAGE PO SCH (11:33)
[2016-11-22] MEDS: ROCEPHIN/NS 1 GM/50 ML 50 ML IV SCH (11:33)
[2016-11-22] MEDS: CARDIZEM PO SCH (11:34)
[2016-11-22] MEDS: LOPRESSOR PO SCH (11:34)
[2016-11-22] MEDS: PLAVIX PO SCH (11:34)
[2016-11-22] MEDS: PHOS-NAK PO SCH (11:35)
[2016-11-22] MEDS: BABY ASPIRIN PO SCH (11:39)
--- NOTE | 2016-11-22 13:54 | Discharge Summary ---
Providers - Providers Date of Admission: 11/19/16 05:03 Date of discharge: 11/22/16 Attending physician: LOS DELGADO Primary care physician: E MAIL SYSTEM ADMINISTRATOR Hospitalization Condition: Fair Disposition: DC/TX HOME UNDER HOME HEALTH Time spent for discharge: 31 min Core Measure Documentation - Palliative Care Palliative Care/ Comfort Measures: Not Applicable - Core Measures Any of the following diagnoses?: none Exam - Constitutional Vitals: Temp Pulse Resp BP Pulse Ox 97.4 F L 104 H 20 144/67 100 11/22/16 08:50 11/22/16 13:30 11/22/16 13:30 11/22/16 11:34 11/22/16 08:50 General appearance: Present: no acute distress, well-nourished - EENT Eyes: Present: PERRL, EOM intact - Neck Neck: Present: supple, normal ROM - Respiratory Respiratory effort: normal Respiratory: bilateral: diminished, negative: rales, rhonchi, wheezing - Cardiovascular Rhythm: regular Heart Sounds: Present: S1 & S2 - Extremities Extremities: no ischemia, pulses intact, pulses symmetrical Peripheral Pulses: within normal limits - Abdominal General gastrointestinal: Present: soft, non-tender, non-distended, normal bowel sounds - Integumentary Integumentary: Present: clear, warm - Musculoskeletal Musculoskeletal: right sided weakness - Psychiatric Psychiatric: appropriate mood/affect, cooperative - Neurologic Neurologic: other (CVA with Rt.Hemiparesis) Plan Activity: advance as tolerated, fall precautions Diet: low cholesterol, low salt, diabetic Special Instructions: physical therapy, home health RN Follow up with: PRIMARY CARE, [Primary Care Provider] - 3-5 Days Prescriptions: ALBUTEROL Inhaler [ProAir HFA Inhaler] 2 puff IH QID PRN #1 inhalation PRN Reason: Shortness Of Breath Azithromycin [Zithromax Z-FAWN] 0 mg PO DAILY #1 tab Prednisone [predniSONE 10 mg (6-Day Pack, 21 Tabs)] 10 mg PO .TAPER #1 tab.ds.pk
[2016-11-22] MEDS ORDERED: GLUCOTROL PO SCH (17:00)
[2016-11-22] MEDS ORDERED: PNEUMOVAX 23 IM ONE (17:30)
[2016-11-22] MEDS ORDERED: FLUARIX QUAD 2016-2017(36 MOS+) IM ONE (17:30)
[2016-11-22 18:37] VITALS: BP 137/79
== END 2016-11-22 19:00 | disposition home health service (06) | DRG 872 ==
LOC: ED 20:58 → 3A 11-19 05:03
PROVIDERS: ADMIT Internal Medicine; ATTEND Internal Medicine
PROC: 30233N1 Transfusion of Nonautologous Red Blood Cells into Peripheral Vein, Percutaneous Approach (ICD-10-PCS; principal; 2016-11-19)
DX: A41.9 Sepsis, unspecified organism (principal); J44.0 Chronic obstructive pulmonary disease with (acute) lower respiratory infection; J44.1 Chronic obstructive pulmonary disease with (acute) exacerbation; I69.351 Hemiplegia and hemiparesis following cerebral infarction affecting right dominant side; J20.9 Acute bronchitis, unspecified; I10 Essential (primary) hypertension; J45.909 Unspecified asthma, uncomplicated; E78.5 Hyperlipidemia, unspecified; D64.9 Anemia, unspecified; E11.65 Type 2 diabetes mellitus with hyperglycemia; I69.320 Aphasia following cerebral infarction; Z79.82 Long term (current) use of aspirin; Z79.4 Long term (current) use of insulin; Z79.899 Other long term (current) drug therapy; Z82.49 Family history of ischemic heart disease and other diseases of the circulatory system; Z79.84 Long term (current) use of oral hypoglycemic drugs
CPT/HCPCS: 36415; 71010; 80048; 80061; 82550; 82553; 82728; 82962; 83550; 83735; 83880; 84100; 84484; 85007; 85025; 85610; 85730; 86850; 86900; 86901; 86920; 87040; 90686; 90732; 93005; 93010; 94640; 94760; 96365; 96366; 96367; 96375; J0360; J0696; J1200; J1650; J1815; J2270; J2543; J2920; J2930; J3475; J7030; J7040; P9016

== ENCOUNTER 2018-05-16 08:25 | Emergency (ER) | payer MEDICARE ==
--- NOTE | 2018-05-16 08:35 | Emergency Department Report ---
ED General Adult HPI - General Chief complaint: Cardiac Arrest/CPR Stated complaint: CARDIAC ARREST Time Seen by Provider: 05/16/18 08:34 Source: family, EMS Mode of arrival: Stretcher Limitations: No Limitations - History of Present Illness Initial comments: Patient presents to emergency department in cardiac arrest. Per family last time the patient was seen normal was 6 AM this morning. Per EMS the patient was asystole upon their arrival ACLS protocols following the patient remain asystole in route. Patient had a history -: Sudden Radiation: non-radiation Severity scale (0 -10): 0 Improves with: none Worsens with: none - Related Data Home Medications Medication Instructions Recorded Confirmed Last Taken Aspirin [Aspirin BABY CHEW TAB] 81 mg PO QDAY 02/05/15 11/18/16 11/18/16 Clonidine HCl [Catapres] 0.3 mg PO Q8H 02/05/15 11/18/16 11/18/16 Clopidogrel Bisulfate [Plavix] 75 mg PO DAILY 02/05/15 11/18/16 11/18/16 Diltiazem [Cardizem] 60 mg PO DAILY 02/05/15 11/18/16 11/18/16 Famotidine [Pepcid] 20 mg PO QHS 02/05/15 11/18/16 11/18/16 Insulin Glargine [Lantus VIAL] 25 unit SUB-Q QHS 02/05/15 11/18/16 11/18/16 Metoprolol [Lopressor TAB] 50 mg PO BID 02/05/15 11/18/16 11/18/16 Simvastatin [Zocor TAB] 20 mg PO QHS 02/05/15 11/18/16 11/18/16 metFORMIN [Glucophage] 500 mg PO BID 02/05/15 11/18/16 11/18/16 Previous Rx's Medication Instructions Recorded Last Taken Type ALBUTEROL Inhaler [ProAir HFA 2 puff IH QID PRN #1 inhalation 11/22/16 Unknown Rx Inhaler] Azithromycin [Zithromax Z-FWAN] 0 mg PO DAILY #1 tab 11/22/16 Unknown Rx Prednisone [predniSONE 10 mg 10 mg PO .TAPER #1 tab.ds.pk 11/22/16 Unknown Rx (6-Day Pack, 21 Tabs)] Allergies Allergy/AdvReac Type Severity Reaction Status Date / Time No Known Allergies Allergy Unverified 02/05/15 13:35 ED Review of Systems ROS: Stated complaint: CARDIAC ARREST Other details as noted in HPI Comment: Unobtainable due to pts medical conditions ED Past Medical Hx - Past Medical History Hx Hypertension: Yes Hx CVA: Yes Hx Diabetes: Yes Hx Deep Vein Thrombosis: No Hx Asthma: Yes Hx COPD: Yes - Surgical History Hx Pacemaker: No Hx Internal Defibrillator: No Additional Surgical History: Gtube - Social History Smoking Status: Unknown if ever smoked - Medications Home Medications: Home Medications Medication Instructions Recorded Confirmed Last Taken Type Aspirin [Aspirin BABY CHEW TAB] 81 mg PO QDAY 02/05/15 11/18/16 11/18/16 History Clonidine HCl [Catapres] 0.3 mg PO Q8H 02/05/15 11/18/16 11/18/16 History Clopidogrel Bisulfate [Plavix] 75 mg PO DAILY 02/05/15 11/18/16 11/18/16 History Diltiazem [Cardizem] 60 mg PO DAILY 02/05/15 11/18/16 11/18/16 History Famotidine [Pepcid] 20 mg PO QHS 02/05/15 11/18/16 11/18/16 History Insulin Glargine [Lantus VIAL] 25 unit SUB-Q QHS 02/05/15 11/18/16 11/18/16 History Metoprolol [Lopressor TAB] 50 mg PO BID 02/05/15 11/18/16 11/18/16 History Simvastatin [Zocor TAB] 20 mg PO QHS 02/05/15 11/18/16 11/18/16 History metFORMIN [Glucophage] 500 mg PO BID 02/05/15 11/18/16 11/18/16 History ALBUTEROL Inhaler [ProAir HFA 2 puff IH QID PRN #1 inhalation 11/22/16 Unknown Rx Inhaler] Azithromycin [Zithromax Z-FAWN] 0 mg PO DAILY #1 tab 11/22/16 Unknown Rx Prednisone [predniSONE 10 mg 10 mg PO .TAPER #1 tab.ds.pk 11/22/16 Unknown Rx (6-Day Pack, 21 Tabs)] ED Physical Exam - General Limitations: Physical Limitation General appearance: other (asystole) - Head Head exam: Present: atraumatic, normocephalic - Eye Eye exam: Present: other (granuloma over right eye. No corneal reflex, pupils not reactive to light) - ENT ENT exam: Present: other (dry mucous membranes) - Respiratory Respiratory exam: Present: other (patient has breath sounds with active bagging) - Cardiovascular Cardiovascular Exam: Present: other (asystole) - GI/Abdominal GI/Abdominal exam: Present: soft. Absent: distended, tenderness - Extremities Exam Extremities exam: Present: other (patient has muscle atrophy of the lower extremities. Patient has contractures of his upper extremities at the wrists. Patient also has contractures of the lower extremity) - Neurological Exam Neurological exam: Present: other (GCS of 3) - Psychiatric Psychiatric exam: Present: other (not able to assess due to the patient's condition) - Skin Skin exam: Present: other (cool to touch) ED Medical Decision Making - Medical Decision Making Upon the patient's arrival the patient had been asystole for approximately 40 minutes CPR was continued for one round time of was called at 8:20 AM A form patient's family of his condition Critical care attestation.: If time is entered above; I have spent that time in minutes in the direct care of this critically ill patient, excluding procedure time. ED Disposition Clinical Impression: Cardiac arrest Disposition: DC-20 Is pt being admited?: No Does the pt Need Aspirin: No Condition: Undetermined Referrals: PRIMARY CARE, [Primary Care Provider] - 3-5 Days Time of Disposition: 08:30
== END 2018-05-16 12:35 ==
LOC: ED 08:25
DX: I46.9 Cardiac arrest, cause unspecified (principal); I10 Essential (primary) hypertension; E11.9 Type 2 diabetes mellitus without complications; J44.9 Chronic obstructive pulmonary disease, unspecified; Z86.73 Personal history of transient ischemic attack (TIA), and cerebral infarction without residual deficits; Z79.82 Long term (current) use of aspirin; Z79.4 Long term (current) use of insulin
CPT/HCPCS: 92950; 99285